=== PATIENT | male | born 1965 | race Caucasian/White ===

== ENCOUNTER 2016-08-07 13:34 | Emergency (ER) | payer MEDICAID ==
[~2016-08-07] VITALS: Ht 182.9 cm; Wt 86.2 kg
[~2016-08-07 13:34] MED LIST: LISI10TA6 PO
[2016-08-07 14:31] VITALS: BP 141/74
== END 2016-08-07 15:07 | disposition home or self-care (01) ==
LOC: ER 13:34
DX: H10.9 Unspecified conjunctivitis (principal); J20.9 Acute bronchitis, unspecified; I12.9 Hypertensive chronic kidney disease with stage 1 through stage 4 chronic kidney disease, or unspecified chronic kidney disease; N18.9 Chronic kidney disease, unspecified; F17.210 Nicotine dependence, cigarettes, uncomplicated; Z86.73 Personal history of transient ischemic attack (TIA), and cerebral infarction without residual deficits

== ENCOUNTER 2016-11-09 18:43 | Emergency (ER) | payer MEDICAID ==
[~2016-11-09] VITALS: Ht 185.4 cm; Wt 97.5 kg
[2016-11-09] MEDS ORDERED: IBUPROFEN 600 MG TAB PO ONE (19:00)
[2016-11-09 20:00] VITALS: BP 136/87
[2016-11-09] MEDS ORDERED: HYDROcodone-ACET 10/325MG TAB PO ONE (21:15)
== END 2016-11-09 21:18 | disposition home or self-care (01) ==
LOC: ER 18:58
DX: S52.572A Other intraarticular fracture of lower end of left radius, initial encounter for closed fracture (principal); S00.81XA Abrasion of other part of head, initial encounter; I12.9 Hypertensive chronic kidney disease with stage 1 through stage 4 chronic kidney disease, or unspecified chronic kidney disease; N18.9 Chronic kidney disease, unspecified; M79.672 Pain in left foot; R42 Dizziness and giddiness; Z79.899 Other long term (current) drug therapy; V00.131A Fall from skateboard, initial encounter; Y93.51 Activity, roller skating (inline) and skateboarding; Y92.89 Other specified places as the place of occurrence of the external cause; Y99.8 Other external cause status
CPT/HCPCS: 29125; 70450; 73110; 73630

== ENCOUNTER 2017-07-21 13:37 | Emergency (ER) | payer MEDICAID ==
[~2017-07-21] VITALS: Ht 182.9 cm; Wt 86.2 kg
[2017-07-21 13:49] VITALS: BP 167/85
== END 2017-07-21 15:01 | disposition home or self-care (01) ==
LOC: ER 13:37
DX: M25.532 Pain in left wrist (principal); F17.210 Nicotine dependence, cigarettes, uncomplicated; I12.9 Hypertensive chronic kidney disease with stage 1 through stage 4 chronic kidney disease, or unspecified chronic kidney disease; N18.9 Chronic kidney disease, unspecified; Z86.73 Personal history of transient ischemic attack (TIA), and cerebral infarction without residual deficits
CPT/HCPCS: 73110

== ENCOUNTER 2019-07-27 12:52 | Emergency (ER) | payer MEDICAID ==
[~2019-07-27] VITALS: Ht 182.9 cm; Wt 114.3 kg
[2019-07-27 14:13] VITALS: BP 173/99
== END 2019-07-27 16:46 | disposition left against medical advice (07) ==
LOC: ER 12:52
DX: I16.0 Hypertensive urgency (principal); R11.2 Nausea with vomiting, unspecified; I12.9 Hypertensive chronic kidney disease with stage 1 through stage 4 chronic kidney disease, or unspecified chronic kidney disease; N18.9 Chronic kidney disease, unspecified
CPT/HCPCS: 93005

== ENCOUNTER 2020-11-08 10:49 | Emergency (ER) | payer MEDICAID ==
[~2020-11-08] VITALS: Ht 185.4 cm; Wt 122.5 kg
[~2020-11-08 10:49] MED LIST changes: +LISI-716 PO; -LISI10TA6 PO
[2020-11-08 12:10] VITALS: BP 137/92
[2020-11-08] MEDS ORDERED: HYDROcodone-ACET 10/325MG TAB PO ONE (12:15)
== END 2020-11-08 13:14 | disposition home or self-care (01) ==
LOC: ER 10:49
DX: S82.144A Nondisplaced bicondylar fracture of right tibia, initial encounter for closed fracture (principal); S93.402A Sprain of unspecified ligament of left ankle, initial encounter; S70.12XA Contusion of left thigh, initial encounter; I12.9 Hypertensive chronic kidney disease with stage 1 through stage 4 chronic kidney disease, or unspecified chronic kidney disease; N18.9 Chronic kidney disease, unspecified; F17.210 Nicotine dependence, cigarettes, uncomplicated; Z86.73 Personal history of transient ischemic attack (TIA), and cerebral infarction without residual deficits; Z79.899 Other long term (current) drug therapy; W22.8XXA Striking against or struck by other objects, initial encounter; Y93.89 Activity, other specified; Y92.89 Other specified places as the place of occurrence of the external cause; Y99.8 Other external cause status
CPT/HCPCS: 73562; 73610; 73700

== ENCOUNTER 2021-02-15 22:57 | Emergency (ER) | payer MEDICAID ==
[~2021-02-15] VITALS: Ht 185.4 cm; Wt 117.9 kg
[2021-02-16 00:05] LABS: Basophils # (auto) 0.1 10 ^3/uL (0-0.2); Basophils % (auto) 0.8 % (0.0-2.0); Eosinophils # (auto) 0.1 10 ^3/uL (0-0.8); Eosinophils % (auto) 0.6 % (0.0-7.0); Hematocrit 42.9 % (41.0-53.0); Hemoglobin 14.6 g/dL (13.5-17.5); Lymphocytes # (auto) 3.4 10 ^3/uL (0.4-5.4); Lymphocytes % (auto) 21.2 % (10.0-50.0); Mean Corpuscular Hemoglobin 30.8 pg (28.0-32.0); Mean Corpuscular Volume 90.5 fL (80.0-100.0); Monocytes # (auto) 1.9 10 ^3/uL (0-1.3); Monocytes % (auto) 12.1 % (0.0-12.0); Neutrophils # (auto) 10.5 10 ^3/uL (1.6-8.6); Neutrophils % (auto) 65.3 % (37.0-80.0); Nucleated Red Blood Cells % 0.1 %; Red Blood Cells 4.74 10^6/uL (4.5-5.90); Red Cell Distribution Width 13.9 % (11.8-14.3); White Blood Cell 16.1 10^3/uL (4.4-10.8)
[2021-02-16 00:25] LABS: Albumin 2.9 g/dL (3.4-5.0); BUN/Creatinine Ratio 11.9; Calcium 8.7 mg/dL (8.5-10.1); Potassium 4.5 mmol/L (3.5-5.1)
[2021-02-16 00:28] LABS: Bilirubin, Total 0.4 mg/dL (0.2-1.0); Total Protein 8.3 g/dL (6.4-8.2)
[2021-02-16] MEDS ORDERED: HYDROcodone-ACET 5/325MG TAB PO ONE (01:30)
[2021-02-16] MEDS ORDERED: IOHEXOL 350 MG/ML 100ML IJ ONE ×2 (01:43→01:44)
[2021-02-16] MEDS ORDERED: PIPERACILLIN-TAZO 4.5GM 100 ML IV ONE (02:00)
[2021-02-16] MEDS ORDERED: VANCOMYCIN 1GM/250ML 250 ML IV ONE ×2 (02:00)
[2021-02-16 12:00] VITALS: BP 127/57
[2021-02-16 12:13] LABS: Urine WBC None Seen /hpf (0 - 3)
[2021-02-16 12:25] LABS: Urine Bacteria NONE SEEN /hpf (None Seen); Urine Blood 2+ /uL (Negative)
[2021-02-16] MEDS ORDERED: ONDANSETRON HCL 4 MG/2 ML VIAL IV ONE (14:15)
[2021-02-16] MEDS ORDERED: MORPHINE SULFATE 4 MG/ML SYR/VIAL IV ONE (14:15)
== END 2021-02-16 19:51 | disposition left against medical advice (07) ==
LOC: ER 22:58
DX: L02.416 Cutaneous abscess of left lower limb (principal); L03.116 Cellulitis of left lower limb; I10 Essential (primary) hypertension; F17.210 Nicotine dependence, cigarettes, uncomplicated; Z79.899 Other long term (current) drug therapy; Z86.73 Personal history of transient ischemic attack (TIA), and cerebral infarction without residual deficits
CPT/HCPCS: 36415; 72193; 73701; 80053; 81001; 83605; 85025; 87040; 96365; 96366; 96368; 96375; 99285; J2270; J2405; J2543; J3370; Q9967